=== PATIENT | male | born 1980 | race Hispanic/Latino ===

== ENCOUNTER 2017-04-14 09:16 | Observation (INO) | payer SELFPAY ==
[2017-04-14 10:16] LABS: #Basophils 0.1 thou/uL (0.0-0.2); #Eosinphils 0.2 thou/uL (0.0-0.7); #Monocytes 0.6 thou/uL (0.11-0.59); #Neutrophils 7.7 thou/uL (1.40-6.50); %Basophils 0.6 % (0.0-1.0); %Eosinophils 1.8 % (0.0-10.0); %Lymphocytes 25.8 % (21.0-51.0); %Monocytes 5.1 % (0.0-10.0); %Neutrophils 66.7 % (42.0-75.0); Hemoglobin 15.8 g/dL (14.0-18.0); Mean Corpuscular HGB CONC 32.8 g/dL (32.0-36.0); Mean Corpuscular Volume 94.7 fl (80.0-94.0); Mean Platelet Volume 7.4 fL (7.4-10.4); Platelet Count 324 thou/uL (130-400); RBC Distribution Width 11.1 % (11.5-14.5); White Blood Cell (WBC) Count 11.6 thou/uL (4.8-10.8)
[2017-04-14 10:38] LABS: ALT (SGPT) 50 U/L (8-55); AST (SGOT) 36 U/L (5-34); Alkaline Phosphatase 149 U/L (40-150); Anion Gap 14 mmol/L (10-20); BUN (Urea Nitrogen) 8 mg/dL (8.9-20.6); Bilirubin, Total 0.5 mg/dL (0.2-1.2); CK (CPK) 36 U/L (30-200); Calc. Creatinine Clearance 0 mL/min (70-130); Calcium 9.1 mg/dL (7.8-10.44); Carbon Dioxide 22 mmol/L (22-29); Chloride 102 mmol/L (98-107); Estimated GFR-MDRD Greater than 90; Globulin 3.6 g/dL (2.4-3.5); Glucose 300 mg/dL (70-105); Protein, Total 7.6 g/dL (6.0-8.3); Sodium 134 mmol/L (136-145)
[2017-04-14 11:25] LABS: Base Excess-Venous -0.5 mmol/L (-30.0-30.0); Bicarbonate (HCO3v) 23.5 mmol/L (1.0-85.0); CO2 Tension (PvCO2) 35.9 mmHg (41.0-51.0); Calcium, Ionized 1.07 mmol/L (1.12-1.32); Hemoglobin - Calc 15.7 g/dL (12.0-18.0); O2 Tension (PvO2) 66.7 mmHg (35.0-45.0); Potassium 3.7 mmol/L (3.4-4.7); T. Carbon Dioxide 24.6 mmol/L (1.0-85.0); pH (Venous) 7.423 (7.35-7.45); vO2 Saturation-calc 93.5 % (0.0-100.0)
[2017-04-14] MEDS ORDERED: Insulin Regular 300 UNITS/3 ML VIAL ONE (11:34)
--- NOTE | 2017-04-14 11:38 | CT ---
CT OF THE BRAIN WITHOUT CONTRAST: COMPARISON: None. HISTORY: Headache for 2 months. TECHNIQUE: Multiple contiguous axial images were obtained in a CT of the brain without contrast. FINDINGS: The brain is normal in morphology and attenuation without focal lesions r confluent areas of infarcti on. There is no evidence of hydrocephalus, intracranial hemorrhage, or extraaxial fluid collection. The calvarium and overlying soft tissues are unremarkable. The visualized paranasal sinuses and mast oid air cells are well aerated. IMPRESSION: No evidence of acute intracranial abnormality. POS: [facility]
[2017-04-14] MEDS ORDERED: diphenhydrAMINE 50 MG/ML VIAL ONE (11:39)
[2017-04-14] MEDS ORDERED: Metoclopramide HCl 10 MG/2 ML VIAL ONE (11:47)
[2017-04-14 12:06] LABS: Bilirubin Negative (Negative); Blood, Urine Negative (Negative); Clarity CLEAR (Clear); Glucose, Urine (Dipstick) 500 mg/dL (Negative); Leukocyte Negative (Negative); Nitrite Negative (Negative); Protein, Urine (Dipstick) Negative (Neg-Trace); Specific Gravity, Urine 1.035 (1.002-1.036); pH, Urine 7.5 (5.0-9.0)
[2017-04-14] MEDS ORDERED: Dextrose 50% Abboject 50 ML SYRINGE SLOW IVP PRN (13:41)
[2017-04-14] MEDS ORDERED: Dextrose 5% in Water 1,000 ML IV PRN (13:41)
[2017-04-14] MEDS ORDERED: Acetaminophen 325 MG TAB PO PRN (13:43)
[2017-04-14 15:19] VITALS: BMI 37.1
[2017-04-14] MEDS: metFORMIN 500 MG TAB PO SCH (17:14)
--- NOTE | 2017-04-14 23:28 | HP ---
CHIEF COMPLAINT: Frequent urination. HISTORY OF PRESENT ILLNESS: This is a 36-year-old gentleman who for the past 2-3 months has been hav ing frequent urination and headache. The patient denies any nausea, vomiting, or any fever. Denies any trauma prior to the above presentation. The patient on presentation to the ER was noted to have evidence of diabetes mellitus type 2. Given the need to control the diabetes in this patient who nev er knows that he was diabetic, decision was taken to admit this patient for further management. PAST MEDICAL HISTORY: Unremarkable. SOCIAL HISTORY: Denies alcohol, tobacco, or illicit drug use. The patient is unmarried. REVIEW OF SYSTEMS: As documented in the body of the history. All the other systems were reviewed an d found not to be significantly related to present illness. PHYSICAL EXAMINATION: GENERAL: The patient was found not to be in any obvious distress, noted with the following vital sig ns. VITAL SIGNS: Afebrile with temperature 98.3, pulse 107, respiratory rate of 20, O2 saturation 98%, b lood pressure 138/75. HEENT: Unremarkable. Moist oral mucosa. No conjunctival injection or icterus. NECK: Supple. CARDIOVASCULAR SYSTEM: First and second heart sounds were heard. RESPIRATORY SYSTEM: Clear to auscultation. DIGESTIVE SYSTEM: Revealed a benign abdomen with positive bowel sounds. EXTREMITIES: No peripheral edema. SKIN: No new gross rash. IMPRESSION: New-onset type 2 diabetes mellitus. PLAN: 1. The patient has been admitted. 2. We will start this patient on oral hypoglycemic and cover him also with p.r.n. meds.
[2017-04-15 04:59] LABS: Anion Gap 14 mmol/L (10-20); BUN (Urea Nitrogen) 9 mg/dL (8.9-20.6); Calc. Creatinine Clearance 170 mL/min (70-130); Calcium 9.1 mg/dL (7.8-10.44); Carbon Dioxide 21 mmol/L (22-29); Chloride 105 mmol/L (98-107); Estimated GFR-MDRD Greater than 90; Glucose 245 mg/dL (70-105); Potassium 3.8 mmol/L (3.5-5.1); Sodium 136 mmol/L (136-145)
[2017-04-15] MEDS: HumaLOG 300 UNITS/3 ML VIAL SC PRN ×2 (06:00→14:29)
--- NOTE | 2017-04-15 08:25 | PDOC.PN ---
- Subjective Encounter Start Date: 04/15/17 Encounter Start Time: 08:23 Subjective: Seen and examined -still very hyperglycemic - Objective Vital Signs & Weight: Vital Signs (12 hours) Temp Pulse Resp BP BP Pulse Ox 04/15/17 07:45 98.3 F 81 20 119/72 99 04/15/17 03:55 75 18 120/75 Weight Weight 203 lb 4.8 oz I&O: 04/14/17 04/15/17 04/16/17 06:59 06:59 06:59 Intake Total 240 Balance 240 Result Diagrams: 04/14/17 10:08 04/15/17 04:26 Additional Labs: Accuchecks 04/15/17 04/14/17 04/14/17 06:00 20:55 15:03 POC Glucose 225 H 230 H 195 H Phys Exam - Physical Examination Constitutional: NAD HEENT: PERRLA, moist MMs, sclera anicteric, TM's clear Neck: no nodes, no JVD, supple, full ROM Respiratory: no wheezing, no rales, no rhonchi Cardiovascular: RRR, no significant murmur, no rub Gastrointestinal: soft, non-tender, no distention, positive bowel sounds Dx/Plan (1) New onset type 2 diabetes mellitus Code(s): E11.9 - TYPE 2 DIABETES MELLITUS WITHOUT COMPLICATIONS Status: Acute - Plan social work coordinator will need serious diabetic education -: outpatient follow up strongly reccommended -: Insulin treatment might pose quite a challenge-will follow blood sugar on -: oral hypoglycemics * .
[2017-04-15] MEDS: metFORMIN 500 MG TAB PO SCH ×2 (09:30→17:02)
[2017-04-15 11:34] VITALS: TEMP 98.5
[2017-04-15 15:30] VITALS: BP 132/73
== END 2017-04-15 17:29 | disposition home or self-care (01) ==
LOC: ERS 09:16 → 2SW 14:55
PROVIDERS: ADMIT Internal Medicine Nephrology; ATTEND Internal Medicine Nephrology
DX: E11.9 Type 2 diabetes mellitus without complications (principal)
CPT/HCPCS: 36415; 36416; 70450; 80048; 80053; 81003; 82010; 82330; 82550; 82803; 83036; 83605; 84443; 85025; 93005; 96361; 96365; 96375; G0378; J1200; J1815; J2765